=== PATIENT | female | born 1990 | race Caucasian/White ===

== ENCOUNTER 2017-08-15 17:11 | Emergency (ER) | payer SELFPAY ==
[~2017-08-15] VITALS: Ht 152.4 cm; Wt 61.0 kg
[2017-08-15] MEDS ORDERED: IBUPROFEN 600MG TABLET PO ONE (18:15)
[2017-08-15 19:10] VITALS: BP 132/86
== END 2017-08-15 23:00 | disposition left against medical advice (07) ==
LOC: ER 18:34
DX: M79.621 Pain in right upper arm (principal); M25.511 Pain in right shoulder; Y08.89XA Assault by other specified means, initial encounter; Y93.89 Activity, other specified; Y92.89 Other specified places as the place of occurrence of the external cause; Y99.8 Other external cause status
CPT/HCPCS: 81025; 99282